=== PATIENT | male | born 1990 | race Caucasian/White ===

== ENCOUNTER 2016-08-10 15:38 | Emergency (ER) | payer MEDICAID, OTHER ==
[~2016-08-10] VITALS: Ht 190.5 cm; Wt 157.9 kg
[2016-08-10] MEDS ORDERED: VENL75CA47 PO (15:47)
[2016-08-10] MEDS ORDERED: CIPR500T3 PO (15:47)
[2016-08-10] MEDS ORDERED: CLINDAMYCIN 900 MG in APPROPRIATE DILUENT 1 EA IV ONE (17:30)
[2016-08-10 17:33] LABS: BASO % 0.3 % (0.0-1.0); EOS # 0.1 K/mm3 (0.0-0.50); LARGE UNSTAINED CELL # 0.2 K/mm3 (0.0-0.4); LARGE UNSTAINED CELL % 2.1 % (0.0-4.0); LYMPH # 1.5 K/mm3 (1.5-6.5); LYMPH % 18.5 % (24.0-44.0); MEAN CORPUSCULAR HEMOGLOBIN 30.1 pg (27.0-33.0); MEAN CORPUSCULAR HGB CONC 34.8 g/dl (32.0-36.5); MEAN CORPUSCULAR VOLUME 86.4 fl (80.0-96.0); MONO # 0.8 K/mm3 (0.0-0.8); MONO % 10.2 % (0.0-5.0); NEUTROPHILS # 5.5 K/mm3 (1.8-7.7); NEUTROPHILS % 67.8 % (36.0-66.0); PLATELET COUNT, AUTOMATED 179 k/mm3 (150-450); RED CELL DISTRIBUTION WIDTH 12.4 % (11.5-14.5); WHITE BLOOD COUNT 8.1 K/mm3 (4.0-10.0)
[2016-08-10 17:55] LABS: ANION GAP 8 MEQ/L (8-16); BLOOD UREA NITROGEN 12 MG/DL (7-18); CALCIUM LEVEL 8.6 MG/DL (8.5-10.1); CARBON DIOXIDE LEVEL 28 MEQ/L (21-32); CHLORIDE LEVEL 106 MEQ/L (98-107); CREATININE FOR GFR 1.02 MG/DL (0.70-1.30); GLOMERULAR FILTRATION RATE > 60.0 (>60); GLUCOSE, FASTING 93 MG/DL (70-105); POTASSIUM SERUM 3.4 MEQ/L (3.5-5.1); SODIUM LEVEL 142 MEQ/L (136-145)
[2016-08-10 18:23] VITALS: BP 134/64
[2016-08-10] MEDS ORDERED: CLEO300C2 PO (18:34)
== END 2016-08-10 18:45 | disposition home or self-care (01) ==
LOC: M ED 17:07
DX: L03.211 Cellulitis of face (principal); F41.9 Anxiety disorder, unspecified; Z79.899 Other long term (current) drug therapy

== ENCOUNTER → 2018-01-18 | Outpatient (REF) | payer MEDICAID, OTHER | LOC: M LAB REF 21:07 | DX: J02.9 Acute pharyngitis, unspecified (principal) | CPT/HCPCS: 87070 ==

== ENCOUNTER → 2018-06-28 | Outpatient (CLI) | payer OTHER ==
[~2018-06-28] MED LIST: CIPR500T3 PO; CLEO300C2 PO; VENL75CA47 PO
--- NOTE | 2018-07-02 17:24 | SLEEPHOME ---
DATE OF PROCEDURE: 06/28/2018 ORDERED BY: Alisha Barbosa Diagnostic home sleep testing was performed due to concern for the obstructive sleep apnea syndrome in this patient with a history of hypertension and obesity. For testing, a nocturnal T3 respiratory monitoring device was used. Continuous record was made of pulse, oxygen saturation, airflow, chest and abdominal strain and body position. 10 hours and 59 minutes of data were reviewed. There were 8 hours and 26 minutes marked as time in bed. During the interval marked time in bed, there were 86 respiratory events identified of 10 seconds in duration or greater for a respiratory event index of 10.2. The events were primarily obstructive. Baseline pulse rate 95, pulse rate ranged 49 to 115. Baseline saturation 93%; that fell as low as 83%. Testing was performed in both the supine and nonsupine positions. IMPRESSION: Abnormal home sleep testing with repetitive respiratory events and oxygen desaturations to 83% with a respiratory event index of 10.2 is consistent with the obstructive sleep apnea syndrome. RECOMMENDATIONS: The patient should be encouraged to undergo a formal sleep evaluation and in laboratory pressure titration.
== END ==
LOC: M SLEEP HO 09:40
PROVIDERS: ATTEND Nurse Practitioner Adult Health
DX: G47.30 Sleep apnea, unspecified (principal)

== ENCOUNTER 2021-06-19 17:08 | Emergency (ER) | payer BC, OTHER ==
[~2021-06-19] VITALS: Ht 190.5 cm; Wt 196.4 kg
[2021-06-19] MEDS ORDERED: AMLO1TAB25 PO (17:16)
[2021-06-19] MEDS ORDERED: LOSA100T8 PO (17:16)
[2021-06-19 17:49] LABS: BASO # 0.1 10^3/uL (0.0-0.2); BASO % 0.6 % (0.0-1.0); EOS # 0.2 10^3/uL (0.0-0.5); EOS % 1.6 % (0.0-3.0); HEMATOCRIT 45.8 % (42.0-52.0); HEMOGLOBIN 15.9 g/dl (13.5-17.5); LYMPH # 2.8 10^3/uL (1.5-5.0); LYMPH % 25.2 % (24.0-44.0); MEAN CORPUSCULAR HEMOGLOBIN 28.6 pg (27.0-33.0); MEAN CORPUSCULAR HGB CONC 34.7 g/dl (32.0-36.5); MEAN CORPUSCULAR VOLUME 82.4 fl (80.0-96.0); MONO # 1.2 10^3/uL (0.0-0.8); MONO % 10.8 % (2.0-8.0); NEUTROPHILS # 6.9 10^3/uL (1.5-8.5); NEUTROPHILS % 61.4 % (36.0-66.0); PLATELET COUNT, AUTOMATED 281 10^3/uL (150-450); RED BLOOD COUNT 5.56 10^6/uL (4.30-6.10); WHITE BLOOD COUNT 11.2 10^3/uL (4.0-10.0)
[2021-06-19] MEDS ORDERED: KETOROLAC 30 MG/ML 1ML VIAL IV ONE (18:10)
[2021-06-19 18:13] LABS: ALBUMIN 4.1 GM/DL (3.2-5.2); BILIRUBIN,DIRECT 0.2 MG/DL (0.0-0.2); BILIRUBIN,TOTAL 0.7 MG/DL (0.2-1.0); TOTAL PROTEIN 8.2 GM/DL (6.4-8.2)
[2021-06-19] MEDS ORDERED: ACETAMINOPHEN 500 MG TAB PO ONE (18:20)
[2021-06-19] MEDS ORDERED: NORCO, ANEXSIA 5/325MG TABLET (HYDROcodone/ACETAMINOPHEN) PO ONE (19:35)
[2021-06-19] MEDS ORDERED: FLOM0.4C39 PO (19:37)
[2021-06-19] MEDS ORDERED: TAMSULOSIN 0.4 MG CAP PO ONE (19:40)
[2021-06-19] MEDS ORDERED: NORCO 5/325MG TABLET (BULK FOR ED) PO ONE (19:40)
[2021-06-19 20:14] LABS: GC DNA AMPLIFICATION NEGATIVE (NEGATIVE)
[2021-06-19 20:26] VITALS: BP 159/87
== END 2021-06-19 20:27 | disposition home or self-care (01) ==
LOC: M ED 17:08
DX: N13.2 Hydronephrosis with renal and ureteral calculous obstruction (principal); I10 Essential (primary) hypertension; K40.91 Unilateral inguinal hernia, without obstruction or gangrene, recurrent; K76.0 Fatty (change of) liver, not elsewhere classified; Z79.899 Other long term (current) drug therapy

== ENCOUNTER → 2021-06-29 | Outpatient (REF) | payer BC ==
[~2021-06-29] MED LIST changes: +AMLO1TAB25 PO; +FLOM0.4C39 PO; +LOSA100T8 PO
== END ==
LOC: M SMT 12:56
PROVIDERS: ATTEND Nurse Practitioner Women's Health
DX: N13.2 Hydronephrosis with renal and ureteral calculous obstruction (principal)

== ENCOUNTER 2022-08-22 17:45 | Emergency (ER) | payer BC ==
[~2022-08-22] VITALS: Ht 190.5 cm; Wt 197.7 kg
[2022-08-22 17:46] VITALS: BP 135/82
[2022-08-22] MEDS ORDERED: ALLE180T33 PO (17:55)
[2022-08-22] MEDS ORDERED: POTA-298 (17:55)
[2022-08-22] MEDS ORDERED: ERGO500029 (17:55)
[2022-08-22] MEDS ORDERED: PEPC1TAB5 PO (17:55)
[2022-08-22] MEDS ORDERED: LOSA100T46 (17:55)
[2022-08-22] MEDS ORDERED: FURO40TA2 (17:55)
[2022-08-22] MEDS ORDERED: LIDOCAINE 2% MDV 20ML VIAL SC ONE (19:10)
[2022-08-22] MEDS ORDERED: TETANUS/DIPHTHERIA TOX ADSORB ADULT 0.5ML SYR/VIAL IM ONE (19:10)
[2022-08-22] MEDS ORDERED: BACITRACIN OINTMENT 30GM TUBE TOP STA (20:00)
== END 2022-08-22 20:11 | disposition home or self-care (01) ==
LOC: M ED 17:45
DX: S61.412A Laceration without foreign body of left hand, initial encounter (principal); Y92.009 Unspecified place in unspecified non-institutional (private) residence as the place of occurrence of the external cause; Z79.899 Other long term (current) drug therapy; Z88.7 Allergy status to serum and vaccine

== ENCOUNTER 2023-08-16 08:34 | Emergency (ER) | payer BC ==
[~2023-08-16] VITALS: Ht 190.5 cm; Wt 194.4 kg
[~2023-08-16 08:34] MED LIST changes: +ALLE180T33 PO; +ERGO500029; +FURO40TA2; +LOSA100T46; +PEPC1TAB5 PO; +POTA-298
[2023-08-16 08:35] VITALS: BP 135/73; TEMP 97.1; O2SAT 98
[2023-08-16] MEDS ORDERED: SPIR-10 (08:47)
[2023-08-16] MEDS ORDERED: CLAR10CA3 PO (08:47)
[2023-08-16] MEDS ORDERED: VALS1TAB68 (08:47)
[2023-08-16] MEDS ORDERED: IBUP200C25 PO (08:47)
[2023-08-16] MEDS ORDERED: LEVOTAB10 PO (08:47)
[2023-08-16] MEDS ORDERED: IBUP-1022 PO (09:16)
== END 2023-08-16 09:28 | disposition home or self-care (01) ==
LOC: M ED 08:34
DX: S76.312A Strain of muscle, fascia and tendon of the posterior muscle group at thigh level, left thigh, initial encounter (principal); X58.XXXA Exposure to other specified factors, initial encounter; Y92.9 Unspecified place or not applicable; Y93.9 Activity, unspecified; Y99.9 Unspecified external cause status; I50.9 Heart failure, unspecified; I10 Essential (primary) hypertension; K21.9 Gastro-esophageal reflux disease without esophagitis; E78.00 Pure hypercholesterolemia, unspecified; Z87.442 Personal history of urinary calculi; Z79.899 Other long term (current) drug therapy; Z88.7 Allergy status to serum and vaccine

== ENCOUNTER → 2024-06-25 | Outpatient (CLI) | payer BC ==
[~2024-06-25] MED LIST changes: +CLAR10CA3 PO; +IBUP-1022 PO; +IBUP200C25 PO; +LEVOTAB10 PO; +SPIR-10; +VALS1TAB68
== END ==
LOC: M CARPUL 16:22
PROVIDERS: ATTEND Physician Assistant
DX: I10 Essential (primary) hypertension (principal)